=== PATIENT | male | born 1955 | race Caucasian/White ===

== ENCOUNTER → 2019-12-24 | Outpatient (CLI) | payer OTHER | LOC: COL.VAS 13:37 | DX: I65.23 Occlusion and stenosis of bilateral carotid arteries (principal) ==

== ENCOUNTER 2020-07-20 13:21 | Emergency (ER) | payer OTHER ==
[~2020-07-20] VITALS: Ht 172.7 cm; Wt 88.6 kg
[2020-07-20 13:26] VITALS: TEMP 97.7
[2020-07-20] MEDS ORDERED: NORVASC 5MG5 MG/TAB PO (14:43)
[2020-07-20] MEDS ORDERED: CRESTOR20 MG PO (14:44)
[2020-07-20] MEDS ORDERED: LOPRESSOR 550 MG/TAB PO (14:44)
[2020-07-20] MEDS ORDERED: FORTAMET500 M1 PO (14:45)
[2020-07-20] MEDS ORDERED: COZAAR100 MG PO (14:45)
[2020-07-20] MEDS ORDERED: FLOVENT DI50 MCG/Act IH (14:46)
[2020-07-20] MEDS ORDERED: PROSCAR 5MG5 MG PO (14:46)
[2020-07-20] MEDS ORDERED: CARDURA4 MG PO (14:47)
[2020-07-20] MEDS ORDERED: FIORICET 325 MG1 TA1 PO (15:44)
[2020-07-20 16:01] VITALS: BP 166/78; PULSE 66
== END 2020-07-20 16:05 | disposition home or self-care (01) ==
LOC: COL.ER 13:21
DX: R51.9 Headache, unspecified (principal); R03.0 Elevated blood-pressure reading, without diagnosis of hypertension; I10 Essential (primary) hypertension; E78.5 Hyperlipidemia, unspecified; I25.10 Atherosclerotic heart disease of native coronary artery without angina pectoris; Z95.5 Presence of coronary angioplasty implant and graft; Z79.84 Long term (current) use of oral hypoglycemic drugs
CPT/HCPCS: J2405; J2765; J7030